=== PATIENT | male | born 1965 | race Caucasian/White ===

== ENCOUNTER 2023-10-02 15:42 | Emergency (ER) | payer OTHER ==
[2023-10-02] MEDS: Aspirin 81 MG Tab.Chew PO ONE (15:58)
[2023-10-02] MEDS: Heparin Sodium 5,000 Units/ML Vial IVPUSH ONE (16:02)
[2023-10-02] MEDS: Heparin Sodium/0.45% NaCl 25,000 UNITS/500 ML BAG IV SCH (16:02)
[2023-10-02 16:04] LABS: BASOPHILS PERCENT AUTO 0.6 % (0.0-1.0); EOSINOPHILS PERCENT AUTO 3.5 % (1.0-3.0); HEMATOCRIT 45.8 % (40.0-54.0); HEMOGLOBIN 14.7 g/dL (14.0-18.0); LYMPHOCYTES PERCENT AUTO 26.3 % (20.5-50.1); MEAN CORPUSCULAR HEMOGLOBIN 31.9 pg (27.0-34.0); MEAN CORPUSCULAR HGB CONC 32.1 g/dL (33.0-35.0); MEAN CORPUSCULAR VOLUME 99.3 fL (80-100); MONOCYTES PERCENT AUTO 7.2 % (2-8); NEUTROPHILS PERCENT AUTO 62.4 % (42.2-75.2); PLATELET COUNT,PLT 261 10^3/uL (150-450); RED BLOOD CELL COUNT 4.61 10^6/uL (4.6-6.2); WHITE BLOOD CELL COUNT,WBC 10.5 10^3/uL (5.0-10.0)
[2023-10-02] MEDS: Aspirin 81 MG Tab.Chew ONE (16:05)
[2023-10-02] MEDS: Amiodarone 150 MG/3 ML SDV IVPUSH ONE (16:10)
[2023-10-02] MEDS: Tenecteplase 50 MG Kit IVPUSH ONE (16:12)
[2023-10-02] MEDS: Clopidogrel 75 MG Tab PO ONE (16:15)
[2023-10-02 16:31] LABS: A/G RATIO 0.8; ALBUMIN 3.4 g/dL (3.4-5.0); ANION GAP 9.9 mEq/L (7-13); BILIRUBIN TOTAL 0.2 mg/dL (0.2-1.0); BUN/CREATININE RATIO 13.3 (No establ ref range); CALCIUM 8.9 mg/dL (8.5-10.1); CREATININE 1.43 mg/dL (0.70-1.30); EST CRCL DRUG DOSING (CG) 51.43 mL/min; POTASSIUM,K 3.9 mmol/L (3.5-5.1); PROTEIN TOTAL,TP 7.9 g/dL (6.4-8.2)
== END 2023-10-02 16:35 ==
LOC: DL.ED 15:42
DX: I21.11 ST elevation (STEMI) myocardial infarction involving right coronary artery (principal)
CPT/HCPCS: 36415; 71045; 80053; 84484; 85025; 92950; 92960; 93005; 93010; 96365; 96368; 96375; 99285; 99285-25; A9270-GY; J0282; J1644; J3101